=== PATIENT | female | born 1975 | race Caucasian/White ===

== ENCOUNTER → 2023-03-13 10:08 | Outpatient (BNVA) | payer SELFPAY | PROVIDERS: Visit Provider Physician Assistant | DX: S62.632A Displaced fracture of distal phalanx of right middle finger, initial encounter for closed fracture; X58.XXXA Exposure to other specified factors, initial encounter | CPT/HCPCS: 73130 ==

== ENCOUNTER → 2024-05-28 09:23 | Outpatient (BNVA) | payer BC, SELFPAY | PROVIDERS: PCP Family Medicine; Visit Provider Family Medicine | DX: Z00.00 Encounter for general adult medical examination without abnormal findings (principal) | CPT/HCPCS: 80053; 80061; 83036; 85025 ==

== ENCOUNTER 2024-06-22 10:56 | Outpatient (CLI) | payer BC, SELFPAY ==
--- NOTE | 2024-06-22 11:01 | XR_ITS ---
WS: [id number] There is slight depression of the upper endplate of L3 that may represent a recent or old mild compre ssion fracture. No other sign of fracture. Disc spaces are relatively well-maintained. Posterior [place] ents are intact. Slight levoscoliosis. Facet DJD. XR/XR lumbar spine 2-3V* [id number] IMPRESSION: 1. Slight depression of the upper endplate of L3 that could represent a low-gra de compression fracture. Age is indeterminate. If there is high clinical suspi cion for compression fracture, confirmation with CT could be considered.
--- NOTE | 2024-06-22 11:01 | XR_ITS ---
WS: [email or web address] Exam: XR pelvis 1-2V* [id number] Date/Time of Exam: 06/22/2024 11:02 AM Reason For Exam: fall from 5-6 feet, landing on back, acute low back pain No acute pelvic fracture. The hips are intact. SI joints are open. Unremarkable soft tissues. XR/XR pelvis 1-2V* [id number] IMPRESSION: 1. No acute pelvic fracture or other significant finding.
== END 2024-06-22 10:57 | disposition home or self-care (01) ==
LOC: RAD 10:58
PROVIDERS: PCP Family Medicine; Visit Provider Emergency Medicine
DX: M54.50 Low back pain, unspecified (principal); W19.XXXA Unspecified fall, initial encounter; R93.7 Abnormal findings on diagnostic imaging of other parts of musculoskeletal system; M19.09 Primary osteoarthritis, other specified site
CPT/HCPCS: 72100; 72170

== ENCOUNTER 2024-06-26 06:30 | Outpatient (CLI) | payer BC, SELFPAY | END 2024-06-26 06:31 | LOC: SPT 07-13 10:18 | PROVIDERS: PCP Family Medicine; Visit Provider Orthopaedic Surgery | DX: S32.000D Wedge compression fracture of unspecified lumbar vertebra, subsequent encounter for fracture with routine healing (principal); X58.XXXD Exposure to other specified factors, subsequent encounter | CPT/HCPCS: L0456 ==

== ENCOUNTER 2024-07-06 14:14 | Outpatient (CLI) | payer BC, SELFPAY ==
--- NOTE | 2024-07-06 14:45 | CT_ITS ---
WS: [id number] CT LUMBAR SPINE, noncontrast. HISTORY: L3 compression fracture on XR, pain worsening TECHNIQUE: Contiguous 2.0 mm axial imaging are performed. Sagittal and coronal reformats are submitted and reviewed. All CT scans at [facility] use at least one of these dose optimization techniques: automated exposure control; mA and/or kV adjustment per patient size (includes targeted exams where dose is matched to clinical indication); or iterative reconstruction. IV contrast: None DLP: 672.38 mGy.cm COMPARISON: Lumbar spine radiograph 06/22/2024 Normal posterior lumbar alignment. Very slight LEFT curvature of the lumbar spine. L2 acute appearing compression fracture. Fracture involves the superior anterior endplate with slight anterior displacement of the fracture fragment. The anterior displacement of the fragment appears more prominent than on the radiograph from 06/22/2024. There is mild buckling along the anterior cortex. There is no involvement of the posterior vertebral body or posterior elements. T12-L1: Tiny acute avulsion fracture from the LEFT T12 lamina. L1-2: Minimally displaced fracture LEFT L1 transverse process. L2-3: Minimally displaced fracture LEFT L2 transverse process. No disc protrusions. No significant stenosis. L3-4: Nondisplaced fracture LEFT L3 transverse process. Small LEFT foraminal disc protrusion. No stenosis. L4-5: Bilateral facet joint arthropathy. No acute fracture. Mild LEFT foraminal stenosis. L5-S1: No fracture. Bilateral facet arthritis. Visualized retroperitoneum is normal. CT/CT lumbar spine wo con* [id number] IMPRESSION: 1. Acute minimally displaced and depressed L2 compression fracture. Fracture i nvolves the anterior superior endplate with slight anterior displacement. Displ acement does appear slightly more progressed as compared to the radiograph of . 2. Additional LEFT transverse process fractures. Additional fractures involvin g L1, L2 and L3. There is a tiny avulsion fracture from the T12 LEFT posterior element. 3. L4-5: Mild LEFT foraminal stenosis.
== END 2024-07-06 14:15 | disposition home or self-care (01) ==
LOC: RAD 14:17
PROVIDERS: PCP Family Medicine; Visit Provider Family Medicine
DX: S32.020A Wedge compression fracture of second lumbar vertebra, initial encounter for closed fracture (principal); X58.XXXA Exposure to other specified factors, initial encounter; S32.018A Other fracture of first lumbar vertebra, initial encounter for closed fracture; S32.028A Other fracture of second lumbar vertebra, initial encounter for closed fracture; S32.038A Other fracture of third lumbar vertebra, initial encounter for closed fracture; M48.061 Spinal stenosis, lumbar region without neurogenic claudication
CPT/HCPCS: 72131

== ENCOUNTER → 2024-07-08 10:23 | Outpatient (BNVA) | payer BC, SELFPAY | PROVIDERS: PCP Family Medicine; Visit Provider Orthopaedic Surgery | DX: S32.020A Wedge compression fracture of second lumbar vertebra, initial encounter for closed fracture (principal); S32.010A Wedge compression fracture of first lumbar vertebra, initial encounter for closed fracture; S32.030A Wedge compression fracture of third lumbar vertebra, initial encounter for closed fracture; X58.XXXA Exposure to other specified factors, initial encounter | CPT/HCPCS: 72100 ==

== ENCOUNTER 2024-07-12 14:10 | Outpatient (CLI) | payer BC, SELFPAY ==
--- NOTE | 2024-07-12 14:30 | MR_ITS ---
WS: [id number] MRI LUMBAR SPINE NONCONTRAST TECHNIQUE: Sagittal T1, T2 and STIR imaging. Axial T1 and T2 imaging. CLINICAL INFORMATION: compression fx COMPARISON: CT 07/06/2024 FINDINGS: Mild lumbar curve. Mild acute compression fracture superior endplate L3 with associated edema. Minimal loss of vertebral body height. Associated soft tissue edema. No significant retropulsion Small LEFT transverse process fractures at L1, L2, and LEFT L3 better visualized on the recent CT. L1-L2: Mild annular bulging. Mild facet arthropathy. L2-L3: Mild annular bulging. Slight effacement of the ventral thecal sac. Mild facet arthropathy. Slight narrowing RIGHT subarticular recess. Spinal canal and foramen are patent. L3-L4: Mild annular bulging. Slight effacement of the ventral thecal sac. Mild LEFT L3-4 foraminal narrowing. L4-L5: Mild annular bulging. Mild central canal stenosis. Narrowing of the RIGHT greater than LEFT subarticular recess. Moderate facet arthropathy. Foramen are patent. L5-S1: Mild facet arthropathy. Spinal canal and foramen are patent. Visualized pelvic bony structures: Normal. Paravertebral soft tissues: Normal. MR/MR lumbar spine wo con* [id number] IMPRESSION: 1. Mild acute compression fracture anterior super endplate L3 with associated edema. Minimal anterior wedging. No significant retropulsion. 2. LEFT L1-L3 transverse process fractures better appreciated on the recent CT . 3. No significant central canal stenosis. 4. Mild LEFT L3-4 foraminal narrowing with a tiny LEFT foraminal protrusion. 5. Mild annular bulging L4-5 with mild central canal stenosis and moderate fac et arthropathy. Narrowing of the RIGHT greater than LEFT subarticular recess.
== END 2024-07-12 14:11 | disposition home or self-care (01) ==
PROVIDERS: PCP Family Medicine; Visit Provider Orthopaedic Surgery
DX: S32.020A Wedge compression fracture of second lumbar vertebra, initial encounter for closed fracture (principal); S32.010A Wedge compression fracture of first lumbar vertebra, initial encounter for closed fracture; S32.030A Wedge compression fracture of third lumbar vertebra, initial encounter for closed fracture; R93.7 Abnormal findings on diagnostic imaging of other parts of musculoskeletal system; M51.369 Other intervertebral disc degeneration, lumbar region without mention of lumbar back pain or lower extremity pain; M47.896 Other spondylosis, lumbar region; X58.XXXA Exposure to other specified factors, initial encounter; M43.8X6 Other specified deforming dorsopathies, lumbar region; M48.061 Spinal stenosis, lumbar region without neurogenic claudication; M47.897 Other spondylosis, lumbosacral region
CPT/HCPCS: 72148

== ENCOUNTER 2024-08-04 10:36 | Outpatient (CLI) | payer BC, SELFPAY ==
--- NOTE | 2024-08-04 10:40 | MM_ITS ---
WS: [id number] Bilateral screening 3D tomosynthesis digital mammogram, 08/04/2024 10:46 AM Clinical Data: SCREENING Comparison: None. Findings: No spiculated masses or clustered calcifications are seen. There are no secondary signs of carcinoma. MM/MM scr BI tomosynthesis [id number] Impression: Negative bilateral mammogram with no prior exam for review. Recommend annual screening mammograms. BIRADS: 1 - Negative. FOLLOW UP: 1 Year Follow-up DENSITY: There are scattered areas of fibroglandular density. The CAD dry cleaning checker was used
== END 2024-08-04 10:37 | disposition home or self-care (01) ==
LOC: MOBLMAM 10:56
PROVIDERS: PCP Family Medicine; Visit Provider Family Medicine
DX: Z12.31 Encounter for screening mammogram for malignant neoplasm of breast (principal); R92.323 Mammographic fibroglandular density, bilateral breasts
CPT/HCPCS: 77063; 77067

== ENCOUNTER → 2024-11-09 13:24 | Outpatient (BNVA) | payer BC, SELFPAY | PROVIDERS: PCP Family Medicine; Visit Provider Family Medicine | DX: E78.5 Hyperlipidemia, unspecified (principal); E66.9 Obesity, unspecified | CPT/HCPCS: 80061; 83036; 84443 ==